=== PATIENT | male | born 1950 | race African-American/Black ===

== ENCOUNTER 2018-10-21 15:19 | Inpatient (IN) | payer MEDICARE, MEDICAID ==
[~2018-10-21] VITALS: Ht 167.6 cm; Wt 78.5 kg
[~2018-10-21 15:19] MED LIST: ASA; BENAZEPRIL; ISOSORBIDE; KLOR-CON; LASIX
[2018-10-21 16:56] LABS: BASOPHILS % 0.4 % (0.0-2.0); EOSINOPHILS % 0.2 % (0.0-5.0); HEMATOCRIT. 34.2 % (42.0-52.0); HEMOGLOBIN. 11.3 g/dL (14.0-18.0); LYMPHOCYTES % 7.1 % (20.0-50.0); MEAN CORPUSCULAR HEMOGLOBIN 27.3 pg (28.0-32.0); MEAN CORPUSCULAR VOLUME 82.5 fL (80.0-94.0); MEAN PLATELET VOLUME 8.2 fl (7.4-10.4); MONOCYTES % 5.4 % (2.0-8.0); NEUTROPHILS % 86.9 % (40.0-76.0); PLATELET 382 x1000/uL (130-400); RED BLOOD CELL COUNT 4.14 mill/uL (4.7-6.1); RED CELL DISTRIBUTION WIDTH 21.1 % (11.6-14.6)
[2018-10-21 17:25] LABS: CHLORIDE 97 mEq/L (98-107)
[2018-10-21 17:28] LABS: INR 1.2; PROTHROMBIN TIME 11.8 sec (9.1-11.1)
[2018-10-21] MEDS ORDERED: FUROSEMIDE 40MG/4ML VIAL IVP ONE (18:00)
[2018-10-21 18:14] LABS: CLARITY URINE CLEAR (CLEAR); COLOR URINE DARK YELLOW (YELLOW); KETONES URINE NEGATIVE (NEGATIVE); LEUKOCYTE ESTERASE URINE NEGATIVE (NEGATIVE); NITRITE URINE NEGATIVE (NEGATIVE); OCCULT BLOOD URINE NEGATIVE (NEGATIVE); PROTEIN URINE NEGATIVE (NEGATIVE); SPECIFIC GRAVITY URINE 1.013 (1.005-1.030)
[2018-10-22 01:06] VITALS: BP 128/67
[2018-10-22 04:00] VITALS: BP 142/80
[2018-10-22] MEDS: MORPHINE SULFATE 4 MG/ML CPJ (NOT FOR IM USE) IV PRN (06:18)
[2018-10-22 08:00] VITALS: BP 125/93
[2018-10-22] MEDS: METOLAZONE 10MG TABLET PO SCH (08:42)
[2018-10-22] MEDS ORDERED: FUROSEMIDE 40MG/4ML VIAL IVP SCH ×2 (09:00→17:15)
[2018-10-22] MEDS ORDERED: CARVEDILOL 3.125 MG TABLET PO ONE (10:00)
[2018-10-22] MEDS ORDERED: CARVEDILOL 3.125 MG TABLET PO SCH (10:45)
[2018-10-22 11:23] LABS: BG BASE EXCESS 2.3 mmol/L (-2.0-2.0); BG CARBOXYHEMOGLOBIN 1.1 % (0.5-1.5); BG DEOXYHEMOGLOBIN 5.5 % (0.0-5.0); BG FRACTION INSPIRED OXYGEN 21; BG HCO3 ACT 26.8 mmol/L (22.0-26.0); BG METHEMOGLOBIN 0.4 % (0.0-1.5); BG OXYGEN SATURATION 94.4 % (92.0-98.5); BG PCO2 41.4 mmHg (35.0-45.0); BG PH 7.429 (7.350-7.450); BG PO2 76.1 mmHg (75.0-100.0); BG SAMPLE SITE RIGHT BRACHIAL; BG TOTAL HEMOGLOBIN 11.8 g/dL (12.0-18.0); BG VENT MODE ROOM AIR
[2018-10-22 12:00] VITALS: BP 119/93
[2018-10-22 16:00] VITALS: BP 105/74
[2018-10-22] MEDS: FUROSEMIDE 40MG/4ML VIAL IVP SCH (17:02)
[2018-10-22 20:00] VITALS: BP 105/70
[2018-10-22] MEDS: CARVEDILOL 3.125 MG TABLET PO SCH (20:26)
[2018-10-23] VITALS (8 sets, daily range): BP systolic 105–123; BP diastolic 56–84
[2018-10-23] MEDS: MORPHINE SULFATE 4 MG/ML CPJ (NOT FOR IM USE) IV PRN ×2 (01:29→19:43)
[2018-10-23] MEDS: FUROSEMIDE 40MG/4ML VIAL IVP SCH ×2 (06:22→16:58)
[2018-10-23] MEDS: METOLAZONE 10MG TABLET PO SCH (09:44)
[2018-10-23 09:45] LABS: HEMATOCRIT. 36.2 % (42.0-52.0); HEMOGLOBIN. 11.8 g/dL (14.0-18.0); MEAN CORPUSCULAR HEMOGLOBIN 27.2 pg (28.0-32.0); MEAN PLATELET VOLUME 7.8 fl (7.4-10.4); PLATELET 351 x1000/uL (130-400); RED BLOOD CELL COUNT 4.35 mill/uL (4.7-6.1); RED CELL DISTRIBUTION WIDTH 19.3 % (11.6-14.6)
[2018-10-23] MEDS: CARVEDILOL 3.125 MG TABLET PO SCH ×2 (09:47→20:24)
[2018-10-23 12:09] LABS: PHOSPHORUS 4.3 mg/dL (2.5-4.9)
[2018-10-23 15:21] LABS: PLATELET ESTIMATE NORMAL
[2018-10-24] VITALS: BP 111/76
[2018-10-24 04:00] VITALS: BP 120/72
[2018-10-24] MEDS: FUROSEMIDE 40MG/4ML VIAL IVP SCH ×2 (06:16→17:33)
[2018-10-24 08:00] VITALS: BP 108/77
[2018-10-24] MEDS: CARVEDILOL 6.25 MG TABLET PO SCH ×2 (08:08→21:13)
[2018-10-24] MEDS ORDERED: APIXABAN 5 MG TABLET PO SCH (09:00)
[2018-10-24] MEDS: METOLAZONE 10MG TABLET PO SCH (09:50)
[2018-10-24 11:45] LABS: HEMATOCRIT. 34.5 % (42.0-52.0); HEMOGLOBIN. 11.2 g/dL (14.0-18.0); MEAN CORPUSCULAR HEMOGLOBIN 26.8 pg (28.0-32.0); MEAN CORPUSCULAR VOLUME 82.4 fL (80.0-94.0); MEAN PLATELET VOLUME 7.9 fl (7.4-10.4); PLATELET 316 x1000/uL (130-400); RED BLOOD CELL COUNT 4.19 mill/uL (4.7-6.1)
[2018-10-24 12:43] LABS: CHLORIDE 94 mEq/L (98-107)
[2018-10-24 13:02] LABS: PHOSPHORUS 4.1 mg/dL (2.5-4.9)
[2018-10-24] MEDS ORDERED: POTASSIUM CHLORIDE 20MEQ TABLET SR PO NR ×2 (13:15→14:30)
[2018-10-24 13:23] LABS: PLATELET ESTIMATE NORMAL
[2018-10-24] MEDS: MORPHINE SULFATE 4 MG/ML CPJ (NOT FOR IM USE) IV PRN (15:29)
[2018-10-24 16:18] VITALS: BP 100/68
[2018-10-24] MEDS: ONDANSETRON HCL 4MG/2ML INJ IV PRN (17:33)
[2018-10-24] MEDS ORDERED: SENNOSIDES 8.6MG TABLET PO PRN (17:45)
[2018-10-24] MEDS ORDERED: MORPHINE SULFATE 4 MG/ML CPJ (NOT FOR IM USE) IV PRN (18:00)
[2018-10-24 20:00] VITALS: BP_SYST 105; BP_SYST 131; BP_DIAS 52; BP_DIAS 66
[2018-10-24] MEDS: IPRATROPIUM/ALBUTEROL 0.5-3(2.5)MG/3ML NEB HHN SCH (20:47)
[2018-10-24] MEDS ORDERED: LACTULOSE 20G/30ML UDC PO SCH (21:00)
[2018-10-25] VITALS: BP 101/60
[2018-10-25] MEDS: IPRATROPIUM/ALBUTEROL 0.5-3(2.5)MG/3ML NEB HHN SCH ×4 (01:14→19:40)
[2018-10-25 04:00] VITALS: BP 112/64
[2018-10-25] MEDS: FUROSEMIDE 40MG/4ML VIAL IVP SCH ×2 (06:43→17:05)
[2018-10-25 07:47] LABS: HEMATOCRIT. 35.2 % (42.0-52.0); HEMOGLOBIN. 11.2 g/dL (14.0-18.0); MEAN CORPUSCULAR HEMOGLOBIN 26.4 pg (28.0-32.0); MEAN PLATELET VOLUME 7.8 fl (7.4-10.4); PLATELET 294 x1000/uL (130-400); RED BLOOD CELL COUNT 4.24 mill/uL (4.7-6.1); RED CELL DISTRIBUTION WIDTH 19.5 % (11.6-14.6)
[2018-10-25 08:00] VITALS: BP 98/63
[2018-10-25 08:16] LABS: PHOSPHORUS 4.5 mg/dL (2.5-4.9)
[2018-10-25] MEDS: CARVEDILOL 6.25 MG TABLET PO SCH ×2 (09:00→22:18)
[2018-10-25] MEDS ORDERED: KCL 20MEQ/100ML PREMIX 100 ML IV NR (09:00)
[2018-10-25] MEDS: METOLAZONE 10MG TABLET PO SCH (10:23)
[2018-10-25] MEDS: DOCUSATE SODIUM 250MG CAPSULE PO SCH (10:23)
[2018-10-25] MEDS: POTASSIUM CHLORIDE 20MEQ TABLET SR PO SCH (10:23)
[2018-10-25] MEDS: ONDANSETRON HCL 4MG/2ML INJ IV PRN (10:31)
[2018-10-25 12:00] VITALS: BP 100/69
[2018-10-25 16:00] VITALS: BP 103/67
[2018-10-25] MEDS: LACTULOSE 20G/30ML UDC PO SCH ×2 (17:05→21:42)
[2018-10-25] MEDS: HYDROCODONE/ACETAMINOPHEN 10/325MG TABLET PO PRN (17:05)
[2018-10-25 20:00] VITALS: BP 100/76
[2018-10-25 20:23] LABS: PLATELET ESTIMATE NORMAL
[2018-10-25] MEDS ORDERED: DIGOXIN 500MCG/2ML AMP IV NR (21:15)
[2018-10-25] MEDS ORDERED: DIGOXIN 500MCG/2ML AMP IV PRN (23:25)
[2018-10-26] VITALS (9 sets, daily range): BP systolic 89–126; BP diastolic 53–76
[2018-10-26] MEDS: IPRATROPIUM/ALBUTEROL 0.5-3(2.5)MG/3ML NEB HHN SCH ×4 (01:49→20:26)
[2018-10-26] MEDS: PANTOPRAZOLE SODIUM 40 MG/VIAL IV SCH ×2 (02:12→08:08)
[2018-10-26] MEDS: ONDANSETRON HCL 4MG/2ML INJ IV PRN (02:12)
[2018-10-26] MEDS: LACTULOSE 20G/30ML UDC PO SCH ×3 (06:00→21:00)
[2018-10-26] MEDS: FUROSEMIDE 40MG/4ML VIAL IVP SCH ×3 (06:30→18:05)
[2018-10-26 07:02] LABS: HEMATOCRIT. 35.4 % (42.0-52.0); HEMOGLOBIN. 11.4 g/dL (14.0-18.0); MEAN CORPUSCULAR HEMOGLOBIN 26.8 pg (28.0-32.0); MEAN CORPUSCULAR VOLUME 82.9 fL (80.0-94.0); MEAN PLATELET VOLUME 7.7 fl (7.4-10.4); PLATELET 297 x1000/uL (130-400); RED BLOOD CELL COUNT 4.27 mill/uL (4.7-6.1); RED CELL DISTRIBUTION WIDTH 19.5 % (11.6-14.6)
[2018-10-26] MEDS: HYDROCODONE/ACETAMINOPHEN 10/325MG TABLET PO PRN ×2 (08:08→23:29)
[2018-10-26] MEDS ORDERED: LIDOCAINE HCL 1% 20ML VIAL (Pyxis) INJ ONE (08:17)
[2018-10-26] MEDS: POTASSIUM CHLORIDE 20MEQ TABLET SR PO SCH ×2 (09:00→14:49)
[2018-10-26] MEDS: METOLAZONE 10MG TABLET PO SCH (09:00)
[2018-10-26] MEDS: DOCUSATE SODIUM 250MG CAPSULE PO SCH (09:00)
[2018-10-26] MEDS: CARVEDILOL 6.25 MG TABLET PO SCH ×3 (09:00→20:58)
[2018-10-26] MEDS ORDERED: IOHEXOL-300 50 ML BOTTLE IV ONE (09:44)
[2018-10-26 10:25] LABS: PLATELET ESTIMATE NORMAL
[2018-10-26] MEDS ORDERED: HEPARIN SODIUM 1,000 UNIT/1ML VIAL IV NR (11:45)
[2018-10-26] MEDS: ENOXAPARIN 40MG/0.4ML SYR SUBCUT SCH (14:44)
[2018-10-27] VITALS: BP 125/62
[2018-10-27] MEDS: IPRATROPIUM/ALBUTEROL 0.5-3(2.5)MG/3ML NEB HHN SCH ×4 (01:06→21:10)
[2018-10-27 04:00] VITALS: BP 90/60
[2018-10-27] MEDS: LACTULOSE 20G/30ML UDC PO SCH ×3 (06:15→22:01)
[2018-10-27] MEDS: FUROSEMIDE 40MG/4ML VIAL IVP SCH ×2 (06:16→09:25)
[2018-10-27] MEDS: HYDROCODONE/ACETAMINOPHEN 10/325MG TABLET PO PRN (06:31)
[2018-10-27 08:00] VITALS: BP 92/59
[2018-10-27] MEDS: CARVEDILOL 6.25 MG TABLET PO SCH ×2 (09:00→22:01)
[2018-10-27 09:06] LABS: A/G RATIO 0.5 (0.7-1.7); ALBUMIN 2.5 g/dL (2.9-4.4); ALPHA-1-GLOBULIN 0.4 g/dL (0.0-0.4); ALPHA-2-GLOBULIN 0.9 g/dL (0.4-1.0); BETA GLOBULIN 1.3 g/dL (0.7-1.3); GLOBULIN TOTAL 4.7 g/dL (2.2-3.9); M-SPIKE Not Observed g/dL (Not Observed); TOTAL PROTEIN SERUM 7.2 g/dL (6.0-8.5)
[2018-10-27] MEDS: POTASSIUM CHLORIDE 20MEQ TABLET SR PO SCH (09:23)
[2018-10-27] MEDS: ENOXAPARIN 40MG/0.4ML SYR SUBCUT SCH (09:23)
[2018-10-27] MEDS: METOLAZONE 10MG TABLET PO SCH (09:23)
[2018-10-27] MEDS: DOCUSATE SODIUM 250MG CAPSULE PO SCH (09:23)
[2018-10-27] MEDS: PANTOPRAZOLE SODIUM 40 MG/VIAL IV SCH (09:25)
[2018-10-27 12:00] VITALS: BP 90/68
[2018-10-27 12:50] LABS: HEMATOCRIT. 35.3 % (42.0-52.0); HEMOGLOBIN. 11.4 g/dL (14.0-18.0); MEAN CORPUSCULAR HEMOGLOBIN 26.8 pg (28.0-32.0); MEAN PLATELET VOLUME 7.6 fl (7.4-10.4); PLATELET 230 x1000/uL (130-400); RED BLOOD CELL COUNT 4.25 mill/uL (4.7-6.1); RED CELL DISTRIBUTION WIDTH 19.3 % (11.6-14.6)
[2018-10-27 13:19] LABS: PHOSPHORUS 4.5 mg/dL (2.5-4.9)
[2018-10-27 16:00] VITALS: BP 121/69
[2018-10-27] MEDS ORDERED: ENOXAPARIN 40MG/0.4ML SYR SUBCUT NR (16:00)
[2018-10-27 16:46] LABS: PLATELET ESTIMATE NORMAL
[2018-10-27 20:00] VITALS: BP 100/66
[2018-10-28] VITALS (7 sets, daily range): BP systolic 98–116; BP diastolic 55–70
[2018-10-28] MEDS: ONDANSETRON HCL 4MG/2ML INJ IV PRN (00:25)
[2018-10-28] MEDS: IPRATROPIUM/ALBUTEROL 0.5-3(2.5)MG/3ML NEB HHN SCH ×4 (01:00→20:51)
[2018-10-28] MEDS: LACTULOSE 20G/30ML UDC PO SCH ×3 (05:51→21:32)
[2018-10-28] MEDS: ENOXAPARIN 80MG/0.8ML SYR SUBCUT SCH ×2 (05:51→17:56)
[2018-10-28] MEDS: FUROSEMIDE 40MG/4ML VIAL IVP SCH ×2 (06:34→17:56)
[2018-10-28] MEDS: PANTOPRAZOLE SODIUM 40 MG/VIAL IV SCH (09:00)
[2018-10-28] MEDS: DOCUSATE SODIUM 250MG CAPSULE PO SCH (09:00)
[2018-10-28 10:05] LABS: HEMATOCRIT. 34.2 % (42.0-52.0); HEMOGLOBIN. 11.2 g/dL (14.0-18.0); MEAN CORPUSCULAR HEMOGLOBIN 26.9 pg (28.0-32.0); MEAN PLATELET VOLUME 7.8 fl (7.4-10.4); PLATELET 193 x1000/uL (130-400); RED BLOOD CELL COUNT 4.17 mill/uL (4.7-6.1); RED CELL DISTRIBUTION WIDTH 19.3 % (11.6-14.6)
[2018-10-28] MEDS ORDERED: DIGOXIN 500MCG/2ML AMP IV NR (10:15)
[2018-10-28] MEDS: CARVEDILOL 3.125 MG TABLET PO SCH ×2 (11:22→21:00)
[2018-10-28] MEDS: POTASSIUM CHLORIDE 20MEQ TABLET SR PO SCH (11:43)
[2018-10-28 13:14] LABS: PLATELET ESTIMATE NORMAL
[2018-10-28] MEDS: HYDROCODONE/ACETAMINOPHEN 10/325MG TABLET PO PRN (13:24)
[2018-10-28 16:42] LABS: PHOSPHORUS 3.1 mg/dL (2.5-4.9)
[2018-10-29] VITALS (8 sets, daily range): BP systolic 102–114; BP diastolic 48–69
[2018-10-29] MEDS: IPRATROPIUM/ALBUTEROL 0.5-3(2.5)MG/3ML NEB HHN SCH ×3 (02:00→21:46)
[2018-10-29] MEDS: FUROSEMIDE 40MG/4ML VIAL IVP SCH ×2 (06:23→17:29)
[2018-10-29] MEDS: LACTULOSE 20G/30ML UDC PO SCH ×3 (06:23→22:00)
[2018-10-29] MEDS: ENOXAPARIN 80MG/0.8ML SYR SUBCUT SCH (06:23)
[2018-10-29 07:17] LABS: HEMATOCRIT. 35.1 % (42.0-52.0); HEMOGLOBIN. 11.6 g/dL (14.0-18.0); MEAN CORPUSCULAR HEMOGLOBIN 27.5 pg (28.0-32.0); MEAN CORPUSCULAR VOLUME 82.9 fL (80.0-94.0); MEAN PLATELET VOLUME 8.4 fl (7.4-10.4); PLATELET 211 x1000/uL (130-400); RED BLOOD CELL COUNT 4.24 mill/uL (4.7-6.1); RED CELL DISTRIBUTION WIDTH 19.4 % (11.6-14.6)
[2018-10-29] MEDS: CARVEDILOL 3.125 MG TABLET PO SCH ×3 (09:00→20:21)
[2018-10-29] MEDS: DOCUSATE SODIUM 250MG CAPSULE PO SCH (09:20)
[2018-10-29] MEDS: PANTOPRAZOLE SODIUM 40 MG/VIAL IV SCH (09:20)
[2018-10-29] MEDS: METOLAZONE 10MG TABLET PO SCH (09:21)
[2018-10-29] MEDS: POTASSIUM CHLORIDE 20MEQ TABLET SR PO SCH (09:21)
[2018-10-29 19:35] LABS: PLATELET ESTIMATE NORMAL
[2018-10-29] MEDS: DILTIAZEM HCL 5MG/ML 5ML VIAL IV PRN ×2 (21:02→21:30)
[2018-10-30] VITALS: BP 105/72
[2018-10-30] MEDS: IPRATROPIUM/ALBUTEROL 0.5-3(2.5)MG/3ML NEB HHN SCH ×4 (02:01→20:06)
[2018-10-30 04:00] VITALS: BP 100/61
[2018-10-30] MEDS ORDERED: ENOXAPARIN 80MG/0.8ML SYR SUBCUT SCH (06:00)
[2018-10-30] MEDS: LACTULOSE 20G/30ML UDC PO SCH ×3 (06:00→21:14)
[2018-10-30] MEDS: FUROSEMIDE 40MG/4ML VIAL IVP SCH ×2 (06:48→17:51)
[2018-10-30 07:43] LABS: HEMATOCRIT. 33.1 % (42.0-52.0); MEAN CORPUSCULAR HEMOGLOBIN 26.8 pg (28.0-32.0); MEAN CORPUSCULAR VOLUME 81.1 fL (80.0-94.0); MEAN PLATELET VOLUME 8.2 fl (7.4-10.4); PLATELET 212 x1000/uL (130-400); RED BLOOD CELL COUNT 4.08 mill/uL (4.7-6.1); RED CELL DISTRIBUTION WIDTH 19.5 % (11.6-14.6)
[2018-10-30 08:00] VITALS: BP 95/67
[2018-10-30] MEDS: METOLAZONE 10MG TABLET PO SCH (09:28)
[2018-10-30] MEDS: CARVEDILOL 3.125 MG TABLET PO SCH ×2 (09:28→21:15)
[2018-10-30] MEDS: POTASSIUM CHLORIDE 20MEQ TABLET SR PO SCH (09:28)
[2018-10-30] MEDS: DOCUSATE SODIUM 250MG CAPSULE PO SCH (09:28)
[2018-10-30] MEDS: HYDROCODONE/ACETAMINOPHEN 10/325MG TABLET PO PRN (09:29)
[2018-10-30] MEDS: PANTOPRAZOLE SODIUM 40 MG/VIAL IV SCH (09:29)
[2018-10-30 09:48] LABS: PHOSPHORUS 2.9 mg/dL (2.5-4.9)
[2018-10-30] MEDS ORDERED: DIGOXIN 500MCG/2ML AMP IV SCH (11:15)
[2018-10-30 12:24] LABS: PLATELET ESTIMATE NORMAL
[2018-10-30 12:46] VITALS: BP 96/52
[2018-10-30 16:00] VITALS: BP 94/51
[2018-10-30] MEDS ORDERED: DIGOXIN 125MCG TABLET PO SCH (18:00)
[2018-10-30 20:00] VITALS: BP 107/71
[2018-10-31] VITALS: BP 94/72
[2018-10-31] MEDS: IPRATROPIUM/ALBUTEROL 0.5-3(2.5)MG/3ML NEB HHN SCH (01:44)
[2018-10-31] MEDS ORDERED: FAMOTIDINE 20MG/2ML VIAL IV SCH (09:00)
== END 2018-10-31 05:25 | disposition expired | DRG 291 ==
LOC: ER 15:19 → 8WST 18:31 → EDBEDREQ 18:33 → EDBEDREQTM 18:33 → ENRESERV 22:08
PROVIDERS: ADMIT Internal Medicine; ATTEND Internal Medicine
PROC: B5181ZA Fluoroscopy of Superior Vena Cava using Low Osmolar Contrast, Guidance (ICD-10-PCS; principal; 2018-10-26)
PROC: 02HV33Z Insertion of Infusion Device into Superior Vena Cava, Percutaneous Approach (ICD-10-PCS; 2018-10-26)
PROC: B548ZZA Ultrasonography of Superior Vena Cava, Guidance (ICD-10-PCS; 2018-10-26)
PROC: 5A12012 Performance of Cardiac Output, Single, Manual (ICD-10-PCS; 2018-10-31)
PROC: 0BH17EZ Insertion of Endotracheal Airway into Trachea, Via Natural or Artificial Opening (ICD-10-PCS; 2018-10-31)
PROC: 5A1935Z Respiratory Ventilation, Less than 24 Consecutive Hours (ICD-10-PCS; 2018-10-31)
DX: I13.0 Hypertensive heart and chronic kidney disease with heart failure and stage 1 through stage 4 chronic kidney disease, or unspecified chronic kidney disease (principal); L89.153 Pressure ulcer of sacral region, stage 3; I50.23 Acute on chronic systolic (congestive) heart failure; E43 Unspecified severe protein-calorie malnutrition; R18.8 Other ascites; E87.1 Hypo-osmolality and hyponatremia; I47.2 Ventricular tachycardia; N17.9 Acute kidney failure, unspecified; R64 Cachexia; D64.9 Anemia, unspecified; N18.3 Chronic kidney disease, stage 3 (moderate); I25.5 Ischemic cardiomyopathy; E11.22 Type 2 diabetes mellitus with diabetic chronic kidney disease; E87.6 Hypokalemia; I25.10 Atherosclerotic heart disease of native coronary artery without angina pectoris; I45.10 Unspecified right bundle-branch block; I48.91 Unspecified atrial fibrillation; I46.9 Cardiac arrest, cause unspecified; K42.9 Umbilical hernia without obstruction or gangrene; E88.09 Other disorders of plasma-protein metabolism, not elsewhere classified; I95.9 Hypotension, unspecified; K76.9 Liver disease, unspecified; M10.9 Gout, unspecified; Z74.01 Bed confinement status; Z82.49 Family history of ischemic heart disease and other diseases of the circulatory system; Z83.3 Family history of diabetes mellitus; I25.2 Old myocardial infarction; Z95.810 Presence of automatic (implantable) cardiac defibrillator; Z68.27 Body mass index [BMI] 27.0-27.9, adult; Z79.899 Other long term (current) drug therapy
CPT/HCPCS: 36415; 36569; 36600; 71045; 74018; 76770; 76937; 77001; 80048; 82375; 82805; 82962; 83735; 83880; 84100; 84134; 84155; 84165; 84443; 84484; 93005; 93970; 94640; 96374; 99285; C1725; C9113; J1160; J1644; J1650; J1940; J2270; J2405; J3480; J3490; J7030; J7620; Q9967